=== PATIENT | female | born 1995 | race Caucasian/White ===

== ENCOUNTER 2020-12-03 11:35 | Emergency (ER) | payer MEDICAID, SELFPAY ==
[2020-12-03 11:44] VITALS: BP 149/90; PULSE 92; RESP 16; TEMP 36.8; O2SAT 97; BMI 39.4
--- NOTE | 2020-12-03 12:18 | ED_ITS ---
HPI - General Adult General Chief complaint: General Medical Stated complaint: R SIDE NECK SHOULDER PAIN Time Seen by Provider: 12/03/20 12:18 History of Present Illness HPI narrative: Patient complains of right-sided neck and shoulder pain which radiates down to the right hand, there is no numbness or weakness Related Data Previous Rx's Medication Instructions Recorded diazepam [Valium] 10 mg PO TID PRN #10 tab 12/03/20 hydrocodone-acetaminophen 1 tab PO Q6H PRN #10 tab 12/03/20 ibuprofen 600 mg PO Q6H PRN #20 tab 12/03/20 prednisone 60 mg PO DAILY 4 Days #12 tab 12/03/20 Allergies Allergy/AdvReac Type Severity Reaction Status Date / Time Penicillins Allergy Rash Verified 12/03/20 11:48 Review of Systems Review of Systems: Positive for right-sided neck pain radiating down to right fingertips with some tingling Negatives no fever no chills no dizziness no weakness no headache no numbness no weakness no skin rash no chest pain no shortness of breath PMFSH Past Medical History Source: nursing notes reviewed Medical History (Updated 12/04/20 @ 00:00 by Background Daemon) Patient denies significant medical history Social History Social History Advance Directives: No Advance Directives Information Provided: No Physical Exam Vital Signs: Vital Signs: Last Vital Signs Temp 98.2 F 12/03/20 11:44 Pulse 92 12/03/20 11:44 Resp 17 12/03/20 14:04 BP 149/90 H 12/03/20 11:44 Pulse Ox 97 12/03/20 11:44 Body Mass Index 39.4 General appearance is no acute distress common cooperative The head is normocephalic atraumatic The neck had right-sided and right trapezius tenderness there was no midline tenderness there was pain with movement of the neck but the neck was supple Chest clear to auscultation bilaterally with symmetric breath sounds The heart no murmur Extremities full range of motion x4 Skin no rash 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 and symmetrical in both sand sensation is intact and symmetrical in both hands, balance and gait are normal speech in interaction or normal Course Course Course Narrative: Patient is advised he most likely has a pinched nerve in the neck and will follow with primary doctor at this point there is no neurologic deficit and she is discharged home Medical Decision Making Lab Data Labs: Lab Results 12/03/20 Range/Units 13:05 Urine Test NEGATIVE (NEGATIVE) Discharge Plan Discharge Clinical Impression: Cervical radiculopathy Patient Disposition: Home, Self-Care Additional Instructions: You likely have a pinched nerve in her neck that is sending pain down your right arm We are treating with prednisone which in some cases will reduce inflammation and help relieve some of that pain Valium as a muscle relaxer but it will make you sleepy and Motrin and or Vicodin are pain relievers Vicodin is narcotics for use with caution Follow with primary doctor for possible physical therapy and further evaluation You can try following with [facility] [phone], but you may need a referral from a primary doctor Return to ER any time if you develop weakness, loss of sensation, severe pain any worse condition or any concerns Prescriptions: New diazepam [Valium] 10 mg tablet 10 mg PO TID PRN (Reason: muscle spasm) Qty: 10 RF: 0 hydrocodone-acetaminophen 5-325 mg tablet 1 tab PO Q6H PRN (Reason: pain) Qty: 10 RF: 0 ibuprofen 600 mg tablet 600 mg PO Q6H PRN (Reason: pain) Qty: 20 RF: 0 prednisone 20 mg tablet 60 mg PO DAILY 4 Days Qty: 12 RF: 0 Referrals: Jeffrey Xavier MD [Physician] - 2 days (Cervical radiculopathy) Stand Alone Forms: Work/School Release Interventions: ED Discharge Assessment Last Done: 12/03/20 14:05 Discharge Date/Time: 12/03/20 14:07
[2020-12-03 13:34] LABS: UPreg QC Valid YES; Urine Pregnancy NEGATIVE (NEGATIVE)
[2020-12-03] MEDS: predniSONE 20 MG TABLET 60 MG PO (13:52)
[2020-12-03] MEDS: Ketorolac Tromethamine 30 MG/ML VIAL IM (13:52)
[2020-12-03 14:04] VITALS: RESP 17
== END 2020-12-03 14:07 | disposition home or self-care (01) ==
PROVIDERS: Emergency Provider Emergency Medicine
DX: M54.12 Radiculopathy, cervical region (principal)
CPT/HCPCS: 81025; 96372; 96374; 99283; 99284; J1885

== ENCOUNTER 2021-11-29 09:49 | Outpatient (REF) | payer OTHER, SELFPAY ==
--- NOTE | 2021-11-29 09:53 | EMG_ITS ---
Bilateral median and ulnar motor and sensory studies were performed. Bilateral radial sensory studies were performed and paraspinal muscles were tested with a needle. IMPRESSION: 1. Mild bilateral median neuropathy across carpal tunnel. 2. Mild left ulnar neuropathy across cubital tunnel. MD HAMLET Molina/YAMILETH / [id number]
== END 2021-11-29 09:50 | disposition home or self-care (01) ==
LOC: HO.NEURO 09:49
PROVIDERS: Visit Provider Nurse Practitioner Family
DX: M79.641 Pain in right hand (principal); M79.642 Pain in left hand
CPT/HCPCS: 95886; 95911

== ENCOUNTER 2022-03-15 17:19 | Emergency (ER) | payer OTHER, SELFPAY ==
[2022-03-15 18:41] VITALS: BP 147/88; PULSE 84; RESP 16; TEMP 36.7; O2SAT 97; BMI 41.2
--- NOTE | 2022-03-15 19:34 | ED.FEMALEGU ---
HPI - Female Genitourinary General Chief complaint: Urogenital-Female Stated complaint: stated was exposed to gonorrhea Time Seen by Provider: 03/15/22 19:27 Source: patient Mode of arrival: ambulatory Limitations: no limitations History of Present Illness HPI Narrative: This is a 26-year-old female presenting to the emergency department with concerns for gonorrhea. She tells me she received a phone call saying she was exposed to gonorrhea so she is requesting testing and treatment. Patient is asymptomatic. Denies fevers, chills, back pain, abdominal pain vaginal discharge, vaginal bleeding, chest pain, shortness of breath, nausea and vomiting. Related Data Previous Rx's Medication Instructions Recorded diclofenac sodium 1 % topical gel 2 g topical QID #100 grams 10/02/21 (Voltaren Arthritis Pain) doxycycline hyclate 100 mg capsule 100 mg PO BID 7 days #14 caps 03/15/22 metronidazole 500 mg tablet 500 mg PO BID 7 days #14 tabs 03/15/22 Allergies Allergy/AdvReac Type Severity Reaction Status Date / Time Penicillins Allergy Rash Verified 03/15/22 18:46 Review of Systems Review of Systems: Constitutional : No Weight loss, No Fever, No Chills, No Fatigue, No Malaise ENT/Mouth : No sore throat, No Rhinorrhea Eyes: No Eye Pain, No Swelling, No Redness Cardiovascular : No Chest Pain, No SOB, No Dyspnea on Exertion, No Orthopnea, No Edema, No Palpitations Respiratory : No Cough, No Sputum, No Wheezing Gastrointestinal : No Nausea, No Vomiting, No Diarrhea, No Constipation, No abdominal Pain, No Hematochezia, No Melena Genitourinary : No Dysuria, No Urinary Frequency, No Hematuria, Musculoskeletal : No joint pain, No Myalgias, No Joint Swelling Skin : No Skin Lesions, No rash Neuro : No Weakness, No Numbness, No Dizziness, No Headache All other systems reviewed and are negative Yes all other systems are reviewed and are negative [facility] Past Medical History Attestation statement: The following information was validated with the patient. Source: old records reviewed and nursing notes reviewed Medical History (Updated 03/15/22 @ 19:50 by TASNEEM Rooney) Patient denies significant medical history Family History Family History (Updated 10/02/21 @ 15:22 by NOELLE Morel) Father Diabetes mellitus Hypertension Hyperlipidemia Mental disorder Maternal Aunt Breast cancer, Onset Age: 40 Paternal Uncle Throat cancer, Onset Age: 40 Maternal Aunt Throat cancer Mother Sleep apnea Chronic pain Mental disorder Social History Social History Housing: Other (Live with parents) Patient Tobacco Use Status: Former Tobacco user Tobacco use type: Cigarette e-Cigarette/Vaping Use: Never Used Second Hand Smoke Exposure: No Advance Directives: No Advance Directives Information Provided: Yes Current occupational status: employed Physical Exam Vital Signs: Vital Signs: Last Vital Signs Temp 98.1 F 03/15/22 18:41 Pulse 84 03/15/22 18:41 Resp 16 03/15/22 18:41 BP 147/88 H 03/15/22 18:41 Pulse Ox 97 03/15/22 18:41 O2 Del Method 03/15/22 18:41 BMI result Body Mass Index 41.2 Vital signs stable Appearance: Alert.? Oriented X3.? No acute distress.? Head: Normocephalic, atraumatic, no step-offs or deformities Eyes: Pupils equal, round and reactive to light.? CVS: Normal heart rate and rhythm.? Pulses normal.? Respiratory: No respiratory distress.? Breath sounds normal.? Abdomen: Soft and nontender.? Skin: Skin warm and dry.? Normal skin color.? Normal skin turgor.? Extremities: No lower extremity edema.? No calf ttp. 5/5 strength to bilateral upper and lower extremities Back: No midline tenderness, no C-spine tenderness, full range of motion, no CVA tenderness bilaterally Neuro: Oriented X 3.? No motor deficit.? No sensory deficit. CN 2-12 intact Course Reevaluation(s) Reevaluation #1: Patient was given ceftriaxone, doxycycline metronidazole. Educated on safe sex , and using protection if she is going to be sexually active. I advised her to get tested for full panel STD testing in be retested after completion of antibiotics. Advised her to return with new or worsening symptoms in to communicate with all sexual partners. Answered all questions, patient verbalized understanding. At this time patient will be discharged home with doxycycline, metronidazole. Time: 19:49 MDM - Female Genitourinary MDM Narrative Medical decision making narrative: 1947 26-year-old female with known gonorrhea exposure presents requesting treatment for gonorrhea. Asymptomatic. Physical examination benign Plan at this time is testing for gonorrhea, chlamydia. Patient agrees to prophylactic treatment for gonorrhea, chlamydia and trichomonas. 500mg IM ceftriaxone has been given here and scripts for doxycycline 100 mg po BID X 7 days and metronidazole 500 mg po BID X 7 days have been given to the patient. Educated on safe sex practices, full pannel STD testing and speaking to? partners on possible STD. Medical Records Attestation: I reviewed the patient's medical records. Lab Data Attestation: I reviewed the patient's lab results. Critical Care Time Critical Care Time Critical Care Time: No Discharge Plan Discharge Clinical Impression: Contact with and (suspected) exposure to infections with a predominantly sexual mode of transmission Patient Disposition: Home, Self-Care Additional Instructions: Take your medications as prescribed. If you were prescribed antibiotics today, it is important that you take your medication to their entirety, do not skip any doses, do not finish them early. Follow-up with your primary care provider this week. Return to the emergency department with new or worsening symptoms. Such as fevers, chills, chest pain, shortness of breath, nausea, vomiting, dizziness, headache, vision changes, lethargy In case of emergency call 911 You were treated here today with ceftriaxone, a medication that treats gonorrhea. I have sent to your pharmacy Metronidazole that covers trichomonas, and Doxycycline which covers for chlamydia. Please be reevaluated by a healthcare provider after completing your antibiotics. Do not stop them early, do not skip any doses. Until you are reevaluated by a health care provider please practice safe sex as disucussed. Please also have a conversation with your sexual partners.? I also advise you to obtain full panel STD testing to test for other STDs including HIV, Hepatitis B & C and syphilis with your PCP or a local clinic. Prescriptions: New doxycycline hyclate 100 mg capsule 100 mg PO BID 7 Days Qty: 14 0RF metronidazole 500 mg tablet 500 mg PO BID 7 Days Qty: 14 0RF No Action diclofenac sodium [Voltaren Arthritis Pain] 1 % gel 2 g topical QID Qty: 100 0RF Rx Instructions: apply to single elbow, wrist or hand; for hand includes palm/fingers/back of hand Referrals: Stephenie Lozano MD [Primary Care Provider] - 2 days
[2022-03-15] MEDS: cefTRIAXone sodium 500 MG, Lidocaine HCl 1 % MPF 1 ML IM (20:18)
[2022-03-15] MEDS: metroNIDAZOLE 500 MG TABLET PO (20:19)
[2022-03-16 16:52] LABS: CT PCR DETECTED (Not Detect.); NG PCR DETECTED (Not Detect.)
== END 2022-03-15 20:29 | disposition home or self-care (01) ==
PROVIDERS: Emergency Provider Student in an Organized Health Care Education/Training Program; PCP Internal Medicine
DX: A54.9 Gonococcal infection, unspecified (principal); A56.02 Chlamydial vulvovaginitis; Z20.2 Contact with and (suspected) exposure to infections with a predominantly sexual mode of transmission; Z87.891 Personal history of nicotine dependence
CPT/HCPCS: 87491; 87591; 96372; 99282; 99284; J0696